=== PATIENT | male | born 1945 | race Caucasian/White ===

== ENCOUNTER 2021-02-23 08:31 | Day surgery (SDC) | payer MEDICARE, OTHER ==
[~2021-02-23] VITALS: Ht 182.9 cm; Wt 104.2 kg
[~2021-02-23 08:31] MED LIST: AMLO10; Advil200 M1; EZET10; LOSARTAN POTAS100 MG; METO100ER; METPRE4DP PO; NIAC500ER; Robaxin-750750 MG PO; TUMS DUAL ACTI1 EACH
== END 2021-02-23 10:33 | disposition home or self-care (01) ==
LOC: ORSCSDS 08:31
PROVIDERS: Internal Medicine Gastroenterology
PROC: 0DBE8ZX Excision of Large Intestine, Via Natural or Artificial Opening Endoscopic, Diagnostic (ICD-10-PCS; principal; 2021-02-23 09:45)
PROC: 0DBK8ZX Excision of Ascending Colon, Via Natural or Artificial Opening Endoscopic, Diagnostic (ICD-10-PCS; principal; 2021-02-23 09:45)
PROC: 0DBL8ZX Excision of Transverse Colon, Via Natural or Artificial Opening Endoscopic, Diagnostic (ICD-10-PCS; principal; 2021-02-23 09:45)
DX: Z12.11 Encounter for screening for malignant neoplasm of colon (principal); Z86.010 Personal history of colon polyps; D12.2 Benign neoplasm of ascending colon; D12.3 Benign neoplasm of transverse colon; K57.30 Diverticulosis of large intestine without perforation or abscess without bleeding; F17.220 Nicotine dependence, chewing tobacco, uncomplicated; E66.9 Obesity, unspecified; Z68.32 Body mass index [BMI] 32.0-32.9, adult; Z79.899 Other long term (current) drug therapy
CPT/HCPCS: 88305; J2704; J7120

== ENCOUNTER → 2022-07-14 | Outpatient (CLI) | payer MEDICARE, OTHER ==
[2022-07-16 10:21] LABS: Stool Occult Bld Immuno 1 Negative (NEGATIVE)
== END | disposition home or self-care (01) ==
LOC: LAB SHORT 20:00 → LAB 20:00
PROVIDERS: Family Medicine
DX: Z12.5 Encounter for screening for malignant neoplasm of prostate (principal); Z12.11 Encounter for screening for malignant neoplasm of colon; D51.0 Vitamin B12 deficiency anemia due to intrinsic factor deficiency; R79.9 Abnormal finding of blood chemistry, unspecified
CPT/HCPCS: G0328

== ENCOUNTER → 2024-04-26 | Outpatient (CLI) | payer OTHER ==
[2024-04-27 16:00] LABS: Source, Urine Voided
[2024-04-27 17:55] LABS: Bacteria Many /hpf; Calcium Oxalate Crystals Rare /hpf; Hyaline Casts 0-2 /lpf (0-2); Mucus Light (0-Heavy); Squamous Epithelial Cells Few /hpf (Few)
== END ==
LOC: LAB 15:57 → LAB SHORT 15:57
PROVIDERS: Family Medicine
DX: N39.0 Urinary tract infection, site not specified (principal)
CPT/HCPCS: 81015; 87086